=== PATIENT | female | born 1945 ===

== ENCOUNTER 2020-07-08 17:25 | Inpatient (IN) ==
[2020-07-08 18:58] LABS: ABS Eosinophils 0.1 10^3/ul (0-0.6); ABS Lymphocytes 1.7 10^3/ul (1.0-4.8); ABS Monocytes 0.6 10^3/ul (0-0.8); ABS Neutrophils 5.1 10^3/ul (1.5-7.7); Eosinophil % 0.9 %; Hematocrit 33 % (35-47); Lymphocyte % 22.3 %; Mean Corpuscular HGB Conc 33 g/dL (31-36); Mean Corpuscular Hemoglobin 30 pg (27-31); Mean Corpuscular Volume 90 fL (80-97); Mean Platelet Volume 9.9 fL (7.4-10.4); Platelet Count 183 10^3/uL (150-450); Red Blood Count 3.68 10^6 /uL (3.70-4.87); Red Cell Distribution Width 16 % (10-15); White Blood Count 7.5 10^3/uL (3.5-10.8)
[2020-07-08 19:17] LABS: Troponin I 0.01 ng/mL (<0.03)
[2020-07-08 19:19] LABS: Activated Partial Thrombo Time 27.8 seconds (26.0-38.0); INR 1.16 (0.82-1.09)
[2020-07-08 19:29] LABS: Albumin 3.8 g/dL (3.2-5.2); Albumin/Globulin Ratio 1.3 (1-3); Calcium 9.3 mg/dL (8.6-10.3); EGFR African American 48.2 (>60); EGFR Non-African American 39.8 (>60); Potassium 4.4 mmol/L (3.5-5.0); Total Bilirubin 0.3 mg/dL (0.2-1.0); Total Protein 6.8 g/dL (6.4-8.9)
[2020-07-08 22:59] LABS: Urine Appearance Clear; Urine Bilirubin Negative (Negative); Urine Blood Negative (Negative); Urine Color Yellow; Urine Glucose Negative (Negative); Urine Ketones Negative (Negative); Urine Nitrite Negative (Negative); Urine Protein Negative (Negative); Urine Specific Gravity 1.012 (1.002-1.030); Urine Urobilinogen Negative (Negative)
[2020-07-09] MEDS ORDERED: Dextrose 50% Syringe 50 ml 25 GM/50 ML SYRINGE IV PUSH PRN (01:04)
[2020-07-09] MEDS: Heparin 5000 UNITS/ML 1 mL VIAL SUBCUT SCH ×5 (03:40→20:51)
[2020-07-09 06:56] LABS: Anion Gap 8 mmol/L (2-11); Blood Urea Nitrogen 23 mg/dL (6-24); CO2 Carbon Dioxide 26 mmol/L (22-32); Calcium 9.3 mg/dL (8.6-10.3); Chloride 106 mmol/L (101-111); EGFR African American 61.5 (>60); EGFR Non-African American 50.8 (>60); Glucose 93 mg/dL (70-100); Potassium 4.1 mmol/L (3.5-5.0); Sodium 140 mmol/L (135-145)
[2020-07-09] MEDS: Insulin GLARGINE 100 un/ml 10 ml VIAL SUBCUT SCH (08:05)
[2020-07-09] MEDS: Saline NASAL SPRAY 0.65% BTL BOTH NARES SCH ×2 (08:08→20:52)
[2020-07-09 14:17] LABS: Urine Creatinine Concentration 65.66 mg/dL
[2020-07-09 17:49] LABS: % Iron Saturation 11 % (15-55); Iron 37 ug/dL (50-212); Total Iron Binding Capacity 325 mcg/dL (250-450); Transferrin 232 mg/dL (203-362); Unsaturated Iron Binding < 310 ug/dL
[2020-07-09 18:08] LABS: Ferritin 66.1 ng/mL (11-307)
[2020-07-10] MEDS: Heparin 5000 UNITS/ML 1 mL VIAL SUBCUT SCH ×3 (03:32→21:02)
[2020-07-10 06:14] LABS: ABS Eosinophils 0.1 10^3/ul (0-0.6); ABS Lymphocytes 2.2 10^3/ul (1.0-4.8); ABS Monocytes 0.6 10^3/ul (0-0.8); ABS Neutrophils 2.9 10^3/ul (1.5-7.7); Eosinophil % 1.2 %; Hematocrit 34 % (35-47); Lymphocyte % 37.2 %; Mean Corpuscular HGB Conc 33 g/dL (31-36); Mean Corpuscular Hemoglobin 30 pg (27-31); Mean Corpuscular Volume 90 fL (80-97); Nucleated Red Blood Cells % 0.1; Platelet Count 175 10^3/uL (150-450); Red Blood Count 3.72 10^6 /uL (3.70-4.87); Red Cell Distribution Width 16 % (10-15); White Blood Count 5.8 10^3/uL (3.5-10.8)
[2020-07-10 06:32] LABS: ALT 17 U/L (7-52); AST 24 U/L (13-39); Albumin 3.7 g/dL (3.2-5.2); Albumin/Globulin Ratio 1.2 (1-3); Alkaline Phosphatase 61 U/L (35-149); Anion Gap 8 mmol/L (2-11); Blood Urea Nitrogen 18 mg/dL (6-24); CO2 Carbon Dioxide 26 mmol/L (22-32); Calcium 9.6 mg/dL (8.6-10.3); Chloride 108 mmol/L (101-111); EGFR African American 60.8 (>60); EGFR Non-African American 50.3 (>60); Globulin 3.1 g/dL (2-4); Glucose 126 mg/dL (70-100); Sodium 142 mmol/L (135-145); Total Protein 6.8 g/dL (6.4-8.9)
[2020-07-10 09:33] LABS: Vitamin B12 > 1450 pg/mL (180-914)
[2020-07-10] MEDS: Saline NASAL SPRAY 0.65% BTL BOTH NARES SCH ×2 (09:47→21:02)
[2020-07-10] MEDS: Insulin GLARGINE 100 un/ml 10 ml VIAL SUBCUT SCH (10:12)
[2020-07-10 10:56] LABS: Creatine Kinase 392 U/L (10-223)
[2020-07-10 11:46] LABS: Magnesium 1.5 mg/dL (1.9-2.7); Phosphorus 3.8 mg/dL (2.5-5.0)
[2020-07-10 12:01] LABS: TSH Ultra Thyroid Stim Horm 1.83 mcIU/mL (0.34-5.60)
[2020-07-10] MEDS ORDERED: Magnesium Sulf 4 GM/100 ML IV 4,000 MG/100 ML BAG IVPB ONE (13:00)
[2020-07-11] MEDS: Heparin 5000 UNITS/ML 1 mL VIAL SUBCUT SCH ×4 (03:58→22:37)
[2020-07-11 07:42] LABS: ABS Eosinophils 0.1 10^3/ul (0-0.6); ABS Lymphocytes 1.7 10^3/ul (1.0-4.8); ABS Monocytes 0.4 10^3/ul (0-0.8); ABS Neutrophils 2.2 10^3/ul (1.5-7.7); Eosinophil % 3.3 %; Hematocrit 31 % (35-47); Hemoglobin 10.4 g/dL (12.0-16.0); Lymphocyte % 38.6 %; Mean Corpuscular HGB Conc 33 g/dL (31-36); Mean Corpuscular Hemoglobin 30 pg (27-31); Mean Corpuscular Volume 89 fL (80-97); Mean Platelet Volume 10.1 fL (7.4-10.4); Platelet Count 163 10^3/uL (150-450); Red Blood Count 3.52 10^6 /uL (3.70-4.87); Red Cell Distribution Width 16 % (10-15); White Blood Count 4.5 10^3/uL (3.5-10.8)
[2020-07-11 07:47] LABS: Calcium 8.8 mg/dL (8.6-10.3); Potassium 3.8 mmol/L (3.5-5.0)
[2020-07-11 07:53] LABS: EGFR African American 68.9 (>60)
[2020-07-11] MEDS: Saline NASAL SPRAY 0.65% BTL BOTH NARES SCH ×2 (10:19→22:38)
[2020-07-11] MEDS: Insulin GLARGINE 100 un/ml 10 ml VIAL SUBCUT SCH (10:43)
[2020-07-11 20:54] LABS: Urine Appearance Cloudy; Urine Bilirubin Negative (Negative); Urine Blood 3+ (Negative); Urine Color Yellow; Urine Glucose 1+(50 mg/dL) (Negative); Urine Ketones Negative (Negative); Urine Nitrite Negative (Negative); Urine Protein Negative (Negative); Urine Specific Gravity 1.004 (1.002-1.030); Urine Urobilinogen Negative (Negative)
[2020-07-11 21:01] LABS: Urine Bacteria 1+ (Absent); Urine Red Blood Cell 2+(6-10/hpf) (Absent); Urine Squamous Epithelial Cell Present (Absent); Urine White Blood Cell Trace(0-5/hpf) (Absent)
[2020-07-12] MEDS: Heparin 5000 UNITS/ML 1 mL VIAL SUBCUT SCH ×3 (05:54→21:00)
[2020-07-12 06:52] LABS: ABS Eosinophils 0.1 10^3/ul (0-0.6); ABS Lymphocytes 2.1 10^3/ul (1.0-4.8); ABS Monocytes 0.5 10^3/ul (0-0.8); ABS Neutrophils 2.7 10^3/ul (1.5-7.7); Eosinophil % 2.7 %; Hematocrit 32 % (35-47); Hemoglobin 10.8 g/dL (12.0-16.0); Mean Corpuscular HGB Conc 33 g/dL (31-36); Mean Corpuscular Hemoglobin 30 pg (27-31); Mean Corpuscular Volume 89 fL (80-97); Mean Platelet Volume 9.5 fL (7.4-10.4); Platelet Count 173 10^3/uL (150-450); Red Blood Count 3.62 10^6 /uL (3.70-4.87); Red Cell Distribution Width 16 % (10-15); White Blood Count 5.5 10^3/uL (3.5-10.8)
[2020-07-12 07:07] LABS: Calcium 9.1 mg/dL (8.6-10.3); EGFR African American 62.9 (>60); EGFR Non-African American 51.9 (>60); Potassium 4.2 mmol/L (3.5-5.0)
[2020-07-12] MEDS: Saline NASAL SPRAY 0.65% BTL BOTH NARES SCH ×2 (10:02→20:56)
[2020-07-12] MEDS: Insulin GLARGINE 100 un/ml 10 ml VIAL SUBCUT SCH (10:02)
[2020-07-12] MEDS: Senna TAB 8.6 mg TAB PO SCH (20:48)
[2020-07-12] MEDS: Magnesium Hydroxide LIQ 30 ML UDC PO SCH (20:52)
[2020-07-13 00:53] LABS: Urine Appearance Cloudy; Urine Bilirubin Negative (Negative); Urine Blood 3+ (Negative); Urine Color Yellow; Urine Glucose 1+(50 mg/dL) (Negative); Urine Ketones Negative (Negative); Urine Nitrite Negative (Negative); Urine Protein Negative (Negative); Urine Specific Gravity 1.009 (1.002-1.030); Urine Urobilinogen Negative (Negative)
[2020-07-13 00:56] LABS: Urine Bacteria Absent (Absent); Urine Red Blood Cell 3+(>10/hpf) (Absent); Urine Squamous Epithelial Cell Present (Absent); Urine White Blood Cell Trace(0-5/hpf) (Absent)
[2020-07-13] MEDS: Heparin 5000 UNITS/ML 1 mL VIAL SUBCUT SCH ×3 (04:54→21:28)
[2020-07-13 06:21] LABS: Calcium 9.6 mg/dL (8.6-10.3); EGFR African American 58.9 (>60); EGFR Non-African American 48.7 (>60); Magnesium 1.8 mg/dL (1.9-2.7); Potassium 4.4 mmol/L (3.5-5.0)
[2020-07-13] MEDS: Polyethylene Glycol 3350 17 GM PACKET PO SCH (07:23)
[2020-07-13] MEDS: Magnesium Hydroxide LIQ 30 ML UDC PO SCH ×2 (07:23→21:12)
[2020-07-13] MEDS: Saline NASAL SPRAY 0.65% BTL BOTH NARES SCH ×2 (07:23→21:10)
[2020-07-13] MEDS: Insulin GLARGINE 100 un/ml 10 ml VIAL SUBCUT SCH (08:28)
[2020-07-13] MEDS ORDERED: Magnesium Sulfate 2 gm BAG 2 GM/50 ML BAG IVPB ONE (09:37)
[2020-07-13] MEDS: Senna TAB 8.6 mg TAB PO SCH (21:12)
[2020-07-14] MEDS: Heparin 5000 UNITS/ML 1 mL VIAL SUBCUT SCH ×3 (06:05→21:34)
[2020-07-14] MEDS: Polyethylene Glycol 3350 17 GM PACKET PO SCH (08:22)
[2020-07-14] MEDS: Magnesium Hydroxide LIQ 30 ML UDC PO SCH ×2 (08:23→20:44)
[2020-07-14] MEDS: Saline NASAL SPRAY 0.65% BTL BOTH NARES SCH ×2 (08:24→20:51)
[2020-07-14] MEDS: Insulin GLARGINE 100 un/ml 10 ml VIAL SUBCUT SCH (08:25)
[2020-07-14 11:37] LABS: ABS Eosinophils 0.3 10^3/ul (0-0.6); ABS Lymphocytes 1.4 10^3/ul (1.0-4.8); ABS Monocytes 0.5 10^3/ul (0-0.8); ABS Neutrophils 3.8 10^3/ul (1.5-7.7); Eosinophil % 4.7 %; Hematocrit 32 % (35-47); Hemoglobin 10.6 g/dL (12.0-16.0); Lymphocyte % 23.7 %; Mean Corpuscular HGB Conc 33 g/dL (31-36); Mean Corpuscular Hemoglobin 30 pg (27-31); Mean Corpuscular Volume 90 fL (80-97); Nucleated Red Blood Cells % 0.1; Platelet Count 184 10^3/uL (150-450); Red Blood Count 3.55 10^6 /uL (3.70-4.87); Red Cell Distribution Width 16 % (10-15); White Blood Count 5.9 10^3/uL (3.5-10.8)
[2020-07-14 11:53] LABS: Calcium 9.1 mg/dL (8.6-10.3); EGFR African American 57.7 (>60); EGFR Non-African American 47.7 (>60); Potassium 4.4 mmol/L (3.5-5.0)
[2020-07-14] MEDS: Senna TAB 8.6 mg TAB PO SCH (20:52)
[2020-07-15] MEDS: Heparin 5000 UNITS/ML 1 mL VIAL SUBCUT SCH (05:33)
[2020-07-15] MEDS: Insulin GLARGINE 100 un/ml 10 ml VIAL SUBCUT SCH (08:31)
[2020-07-15] MEDS: Magnesium Hydroxide LIQ 30 ML UDC PO SCH ×2 (08:31→08:38)
[2020-07-15] MEDS: Polyethylene Glycol 3350 17 GM PACKET PO SCH (08:31)
[2020-07-15] MEDS: Saline NASAL SPRAY 0.65% BTL BOTH NARES SCH (08:34)
[2020-07-15 11:47] VITALS: BP 114/67
== END 2020-07-15 11:45 ==
LOC: MED 17:25 → ED 17:25 → MED 07-09 03:02
PROVIDERS: ADMIT Internal Medicine; ATTEND Hospitalist